=== PATIENT | female | born 1965 | race Caucasian/White ===

== ENCOUNTER 2024-04-29 12:04 | Emergency (ER) | payer OTHER ==
[~2024-04-29] VITALS: Ht 157.5 cm; Wt 56.2 kg
[2024-04-29 12:46] VITALS: PULSE 90; RESP 16; TEMP 98.8; O2SAT 97
== END 2024-04-29 18:02 | disposition home or self-care (01) ==
LOC: ER 12:12
DX: R26.89 Other abnormalities of gait and mobility (principal); E11.9 Type 2 diabetes mellitus without complications
CPT/HCPCS: 99283